=== PATIENT | male | born 1955 | race Caucasian/White ===

== ENCOUNTER 2016-04-18 17:04 | Emergency (ER) | payer MEDICARE ==
[2016-04-18] MEDS ORDERED: PROPARACAINE 0.5% OP SOLN ONE (19:40)
== END 2016-04-18 20:33 | disposition home or self-care (01) ==
LOC: ER 17:04

== ENCOUNTER 2016-05-06 10:28 | Emergency (ER) | payer MEDICARE ==
[2016-05-06] MEDS ORDERED: METOCLOPRAMIDE 10 MG/2 ML VIAL ONE (11:59)
[2016-05-06] MEDS ORDERED: DIPHENHYDRAMINE 50 MG/ML VIAL ONE (11:59)
[2016-05-06] MEDS ORDERED: KETOROLAC 30 MG/ML VIAL ONE (13:09)
== END 2016-05-06 13:55 | disposition home or self-care (01) ==
LOC: ER 10:28
DX: J01.00 Acute maxillary sinusitis, unspecified (principal); J01.20 Acute ethmoidal sinusitis, unspecified; J01.10 Acute frontal sinusitis, unspecified; J01.30 Acute sphenoidal sinusitis, unspecified; R51 Headache; I10 Essential (primary) hypertension; F17.210 Nicotine dependence, cigarettes, uncomplicated; I25.2 Old myocardial infarction
CPT/HCPCS: 36415; 70450; 80053; 85025; 85652; 96374; 96375; 99284; J1885

== ENCOUNTER 2016-05-10 18:41 | Emergency (ER) | payer MEDICARE, OTHER ==
[2016-05-10] MEDS ORDERED: Ibuprofen 400 MG TAB ONE (20:39)
== END 2016-05-10 21:02 | disposition home or self-care (01) ==
LOC: ER 18:41
DX: J32.0 Chronic maxillary sinusitis (principal); G44.219 Episodic tension-type headache, not intractable; F17.210 Nicotine dependence, cigarettes, uncomplicated; I25.2 Old myocardial infarction; I10 Essential (primary) hypertension; Z79.899 Other long term (current) drug therapy